=== PATIENT | male | born 1985 | race African-American/Black ===

== ENCOUNTER 2016-08-05 16:10 | Emergency (ER) | payer OTHER ==
--- NOTE | ~2016-08-05 | US85 ---
[facility] RADIOLOGY TEXT RESULTS PATIENT: JOSE NAQVI LOCATION: SED : 84 UNIT #: [id number] AGE: [address]: Benton Morrow MD SEX: M ORDER DR: [id number] [place] [id number] MR#: [id number] Acc #: [id number] NAME: JOSE NAQVI : 1985 SEX: M STUDY DATE/TIME: 08/05/2016 16:52 UNIT: SED ROOM: STUDY DESCRIPTION: [facility] Attending Physician: Benton Morrow M.D. Referring Physician: Benton Morrow M.D. Ordering Physician: Benton Morrow M.D. Primary Care Physician: Mo Murguia M.D. MEDICAL IMAGING REPORT This report is preliminary unless electronic signature is present. EXAM Left lower extremity venous ultrasound. DATE OF EXAM 08/05/2016 HISTORY Left calf, ankle, foot pain and swelling for 4 days. FINDINGS Ultrasound examination of left lower extremity veins was performed from the groin to the calf with faith-scale, color Doppler and spectral Doppler evaluation. The veins are patent and compressible from the groin to the knee. There is occlusive DVT in the posterior tibial vein in the distal lower leg at the ankle. The remainder of the calf veins are patent and compressible. IMPRESSION Short-segment occlusive DVT in the posterior tibial vein in the distal left lower leg near the ankle. The remainder of the left lower extremity veins are patent and compressible. Dictated by... Ivan Verma M.D. THIS IS AN ELECTRONICALLY VERIFIED REPORT [facility] RADIOLOGY TEXT RESULTS PATIENT: JOSE NAQVI LOCATION: SED : 84 UNIT #: [id number] AGE: [address]: Benton Morrow MD SEX: M ORDER DR: Ivan Verma M.D. at 08/12/2016 10:33 PM PARMJIT/shazia TD: 08/05/2016 21:02 JOB #: [id number] MEDICAL IMAGING REPORT Page 1 of 1
[~2016-08-05 16:10] MED LIST: ACETAMINOPHEN325 MG PO; ARIXTRA10 MG/0.8 SQ; COUMADIN5 MG PO; DOCUSATE SODIU100 MG PO; FLEXERIL10 MG PO; NO MEDICATIONS
[2016-08-05 16:11] LABS: BASOPHIL# 0.1 X10e3 (0-0.3); BASOPHIL% 0.7 % (0-2.5); DIFF IND NO; EOSINOPHIL# 0.1 X10e3 (0-0.7); EOSINOPHIL% 1.4 % (0.0-7.0); HEMATOCRIT 41.7 % (38.0-50.0); HEMOGLOBIN 13.2 gm/dL (13.0-16.0); LYMPHOCYTE# 2.7 X10e3 (1.0-3.5); LYMPHOCYTE% 29.8 % (17.0-45.0); MEAN CELL VOLUME 71.3 FL (83-96); MEAN CORPUSCULAR HEMOGLOBIN 22.5 PG (28-34); MEAN CORPUSCULAR HGB CONC 31.6 g/dL (30-36); MEAN PLATELET VOLUME 9.7 FL (6.5-11.5); MONOCYTE# 0.6 X10e3 (0-1.0); MONOCYTE% 6.8 % (3.0-12.0); NEUTROPHIL# 5.5 X10e3 (1.5-7.1); NEUTROPHIL% 61.3 % (40-75); PLATELET COUNT 192 X10e3 (140-420); RED BLOOD COUNT 5.85 X10e (3.90-5.60); RED CELL DISTRIBUTION WIDTH 15.5 % (11.0-15.5)
[2016-08-05 16:27] LABS: BUN/CREATININE RATIO 16.66; CALCIUM SERUM 9.1 mg/dL (8.4-10.2); CREATININE SERUM 0.9 mg/dL (0.6-1.4); GLOM FILT RATE Estimated 131.4 mL/min (>60); POTASSIUM 3.8 mmol/L (3.5-5.1)
[2017-01-22] MEDS ORDERED: XARELTO20 MG PO (19:13)
[2017-01-22] MEDS ORDERED: FERROUS SULFAT325 MG PO (19:13)
== END 2016-08-05 18:21 | disposition home or self-care (01) ==
LOC: SED 16:10
PROVIDERS: Emergency Medicine
DX: I82.442 Acute embolism and thrombosis of left tibial vein (principal); Z86.711 Personal history of pulmonary embolism
CPT/HCPCS: 36415; 80048; 85025; 85379; 93971; 96372; 99283; 99284; J1650